=== PATIENT | female | born 1995 | race Caucasian/White ===

== ENCOUNTER 2025-05-22 07:27 | Inpatient (IN) ==
[2025-05-22] MEDS ORDERED: ACETAMINOPHEN 325 MG TAB PO PRN ×2 (07:59→20:41)
[2025-05-22] MEDS ORDERED: OXYTOCIN 30 UNITS/NSS 30 UNITS/500 ML BAG IV PRN ×2 (07:59→20:41)
[2025-05-22] MEDS ORDERED: LIDOCAINE 1% LOCAL 20 ML VIAL INFIL PRN (07:59)
[2025-05-22] MEDS ORDERED: CALCIUM CARBONATE 500 MG CHEWABLE TAB PO PRN (07:59)
[2025-05-22] MEDS: LACTATED RINGER'S 1,000 ML IV PRN (08:39)
[2025-05-22] MEDS: OXYTOCIN 30 UNITS/NSS 30 UNITS/500 ML BAG IV PRN (09:10)
[2025-05-22 09:14] LABS: Hematocrit (blood only) 35.6 % (37.0-47.0); Hemoglobin 12.3 g/dl (12.0-16.0); Mean Corpuscular Hemoglobin 29.4 pg (25.0-34.0); Mean Corpuscular Volume 85.2 fL (80.0-100.0); Platelet Count 240 K/uL (130-400); RDW Standard Deviation 39.2 fL (36.4-46.3); Red Blood Count 4.18 M/uL (4.20-5.40); White Blood Count 9.73 K/ul (4.8-10.8)
--- NOTE | 2025-05-22 09:25 | History & Physical Report ---
Date of Service May 22, 2025 Assessment & Plan (1) Encounter for induction of labor: Plan: This is a 30 y/o at 40w 0d presenting today for induction of labor. is complicated by GDM, not on insulin control. Marin bulb placed Pitocin ordered Epidural, as requested POC glucose monitoring - 68 on admission FHT monitoring - category I on admission. NPO, IV fluids ordered Continue I&O and vitals monitoring Admission and Anticipated Discharge Date Admission Date: May 22, 2025 History of Present Illness Chief Complaint: induction of labor Primary Care Provider: NO PCP Malaika Dawkins is a 30 y/o at 40w 0d with WILL 05/23/25 determined by LMP who is presenting today for induction of labor. is complicated by GDM, not insulin controlled. Rh(+), rubella immune, GBS (-) External FHT and external uterine monitors used; Category I tracing; normal FHT variability. OB Labs: Blood Type A Positive 10/25/24 Antibody Screen NEGATIVE 10/25/24 Hgb 12.0 g/dl (12.0-16.0) 03/03/25 Hct 35.9 % (37.0-47.0) L 03/03/25 MCV 87.6 fL (80.0-100.0) 10/25/24 Plt Count 236 K/uL (130-400) 10/25/24 Rubella IgG Antibody Immune (Immune) 10/25/24 Treponema pallidum Ab Negative (Negative) 03/03/25 Hep Bs Antigen Negative (Negative) 10/25/24 Hepatitis C Antibody Negative (Negative) 10/25/24 HIV 1&2 Ab/P24 Ag 4thGn Negative (Negative) 10/25/24 Glucose 1 Hr 50 gm 224 mg/dl (70-130) H 12/18/24 OB Optional Labs: Chlamydia trachomatis RNA Not Detected (NotDetected) 10/24/24 Neisseria gonorrhoeae RNA Not Detected (NotDetected) 10/24/24 cff-DNA : low-risk CF: declined SMA: declined Review of Systems Denies fever, chills, sweats Denies shortness of breath, difficulty breathing, chest pain, palpitations, chest pressure. Denies breast pain. Denies dysuria. Denies headache or changes in vision. Allergies Allergy/AdvReac Type Severity Reaction Status Date / Time No Known Allergies Allergy Verified 05/21/25 15:26 Home Medications Medication Instructions Recorded Confirmed Type 21-iron fu-folic acid PO 10/15/24 05/21/25 History [ Complete] acetone (urine) test (Ketone Urine #50 ea 12/26/24 05/21/25 Rx Test strips) blood sugar diagnostic (OneTouch #150 ea 12/26/24 05/21/25 Rx Verio test strips) lancets 33 gauge (OneTouch Delica #150 ea 12/26/24 05/21/25 Rx Plus Lancet) Patient History Medical History Human papilloma virus Anxiety Surgical History S/P tonsillectomy Family History Father Diabetes Grandmother (Paternal) Ovarian cancer Denies family history of Breast cancer Colorectal cancer Social History Smoking Status: Never smoker Second Hand Exposure: No; Do You Dip or Chew Tobacco: No; Tobacco Cessation Education Requested by Patient: No Hx Alcohol Use: No Hx Substance Use: No Preferred Language: Colombian Communication Ability: Effective 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 No acute distress. Cardiac: Regular rate and rhythm, no murmurs/rubs/gallops. Respiratory: Clear to auscultation bilaterally a/p, no wheezes/rales/rhonchi. No increased work of breathing. Symmetrical chest rise. No respiratory distress. Abdomen: Normal to inspection. Soft, nontender, gravid. Pelvic: Dilation 1 cm; Effacement 50 ; Station -[address] Cox Lower Extremities: No lower extremity edema or swelling. No deep calf pain. Abby's negative bilaterally Constitutional: WD/WN, vitals as above Results & Data Vital Signs (Past 12 Hours) Vital Signs Temp Pulse Resp BP 05/22/25 09:12 82 129/79 05/22/25 07:59 81 115/74 05/22/25 07:49 36.6 C 81 16 115/74 Supervising Physician Co-Signing Physician Notes Resident Physician Supervision Note: I interviewed and examined the patient. Discussed with Dr. Peterson and agree with findings and plan as documented in the note. Any exceptions or clarifications are listed here: 30 yo G1 at 39 6/7 wga presents for eiol. PNI: A1GDM. VSS, fetus cat 1. SVE /-2, post, med. EFW 6-7, vertex. 35cc marin bulb placed after consent obtained, pt tolerated well. Will start pit. GBS neg, epidural prn. Documented By: Aisstaou Cox MD
[2025-05-22] MEDS: fentANYL 2 MCG/ML BUPIVacaine 0.125%-NSS 100ML BAG ONE (13:27)
[2025-05-22] MEDS: BUPIVACAINE 0.25% PF 30 ML VIAL ONE (13:27)
[2025-05-22] MEDS: LIDOCAINE 2%/EPINEPHRINE 1:200,000 20 ML PF ONE (13:27)
[2025-05-22] MEDS: SODIUM CHLORIDE 0.9% PF INJ 10 ML VIAL ONE (13:29)
--- NOTE | 2025-05-22 13:38 | Anesthesiology Consultation ---
Date of Service May 22, 2025 Assessment & Plan Chart Review Chart Review: Acceptable Risk for Labor Epidural Consults Requested none History Height/Weight Height: 5 ft 2 in Weight: 51.71 kg Allergies Allergy/AdvReac Type Severity Reaction Status Date / Time No Known Allergies Allergy Verified 05/21/25 15:26 Medications Home Medications Medication Instructions Recorded Confirmed Last Taken 21-iron fu-folic acid PO 10/15/24 05/21/25 Unknown [ Complete] acetone (urine) test (Ketone Urine #50 ea 12/26/24 05/21/25 Unknown Test strips) blood sugar diagnostic (OneTouch #150 ea 12/26/24 05/21/25 Unknown Verio test strips) lancets 33 gauge (OneTouch Delica #150 ea 12/26/24 05/21/25 Unknown Plus Lancet) Active Medications Generic Name Dose Route Start Last Admin Trade Name Freq PRN Reason Stop Dose Admin Lactated Ringer's 1,000 mls @ 125 mls/hr 05/22/25 07:59 05/22/25 13:37 Lr IV 05/24/25 07:58 125 mls/hr .Q8H PRN Infusion L&D Protocol Protocol Oxytocin 30 units in 500 mls @ 10 mls/hr 05/22/25 08:49 05/22/25 12:00 Pitocin 30 Units/Nss IV 05/24/25 08:48 0.6 units/hr .Q24H PRN 10 mls/hr Labor Induction/Augmentation Titration Protocol 0.6 UNITS/HR Past Medical History Medical History Human papilloma virus Anxiety Past Family History Family History Father Diabetes Grandmother (Paternal) Ovarian cancer Denies family history of Breast cancer Colorectal cancer Past Surgical History Surgical History S/P tonsillectomy Social History Smoking Status: Never smoker Do You Dip or Chew Tobacco: No Hx Alcohol Use: No Hx Substance Use: No Physical Exam Vital Signs Last Vital Signs Temp 36.9 C 05/22/25 13:00 Pulse 77 05/22/25 13:36 Resp 16 05/22/25 13:26 BP 119/59 L 05/22/25 13:36 Pulse Ox 100 05/22/25 13:32 Testing Laboratory Results 05/22/25 08:58 05/22/25 05/22/25 12:33 09:15 POC Glucose 67 L* 68 L*
[2025-05-22] MEDS ORDERED: LIDOCAINE 2% MPF LOCAL 5 ML VIAL EPI PRN (13:39)
[2025-05-22] MEDS ORDERED: fentANYL 2 MCG/ML BUPIVacaine 0.125%-NSS 100ML BAG EPI PRN (13:39)
[2025-05-22] MEDS ORDERED: diphenhydrAMINE 50 MG/ML VIAL IV PRN (13:39)
[2025-05-22] MEDS ORDERED: SODIUM CHLORIDE 0.9% PF INJ 10 ML VIAL EPI PRN (13:39)
[2025-05-22] MEDS ORDERED: NALBUPHINE HCL INJ 10 MG/ML AMP IV PRN (13:39)
[2025-05-22] MEDS ORDERED: ROPIVACAINE 0.5% PF 5 MG/ML 20 ML VIAL EPI PRN (13:39)
[2025-05-22] MEDS ORDERED: BUPIVACAINE 0.25% PF 30 ML VIAL EPI PRN (13:39)
[2025-05-22] MEDS ORDERED: NALOXONE HCL 1 MG in SODIUM CHLORIDE 0.9% 1,000 ML IV PRN (13:39)
[2025-05-22] MEDS ORDERED: NALOXONE HCL 0.4 MG/1 ML VIAL/CARP IV PRN (13:39)
--- NOTE | 2025-05-22 15:56 | Labor Progress Brief Note ---
Date of Service May 22, 2025 Subjective had srom earlier, comfortable w/ epidural. Pit had to be dc'd due to late decels but has since recovered Assessment & Plan (1) Encounter for induction of labor: (2) Gestational diabetes mellitus (GDM) affecting , antepartum: Plan 30 yo G1 at 39 6/7 wga presents for IOL VSS Fetus was cat 2 during decels that started shortly after epidural but now cat 1 Labor - SVE unchanged from prior, given good recovery will restart pit. Discussed will need to see hwo baby tolerates things GDM - bg wnl GBS neg epidural in place Admission and Anticipated Discharge Date Admission Date: May 22, 2025 Physical Exam Genitourinary: Manual OB Exam: + cervical dilation 4 cm, + cervical effacement 70% and + station -2 OB Exam Monitor Tracing: + external FHT monitor used, + external uterine monitor used (q2-4) and + category I (120/mod/+accel/-decel) Results & Data Vital Signs (Past 12 Hours) Vital Signs Temp Pulse Resp BP Pulse Ox 05/22/25 15:51 77 122/72 05/22/25 15:48 82 100 05/22/25 15:43 74 100 05/22/25 15:38 87 100 05/22/25 15:36 92 H 108/68 05/22/25 15:33 76 100 05/22/25 15:30 16 05/22/25 15:30 16 05/22/25 15:28 88 100 05/22/25 15:23 84 100 05/22/25 15:22 77 121/76 05/22/25 15:18 81 100 05/22/25 15:13 80 100 05/22/25 15:08 85 100 05/22/25 15:06 88 114/71 05/22/25 15:03 85 100 05/22/25 15:00 16 05/22/25 15:00 98.2 F 16 05/22/25 14:58 83 100 05/22/25 14:53 79 100 05/22/25 14:51 76 109/65 05/22/25 14:48 78 100 05/22/25 14:43 82 100 05/22/25 14:38 84 100 05/22/25 14:37 99 H 93 05/22/25 14:32 91 H 100 05/22/25 14:30 16 05/22/25 14:30 16 05/22/25 14:27 74 100 05/22/25 14:22 75 100 05/22/25 14:21 79 125/71 05/22/25 14:17 75 100 05/22/25 14:12 73 100 05/22/25 14:07 75 124/70 100 05/22/25 14:02 76 100 05/22/25 14:00 16 05/22/25 14:00 16 05/22/25 13:57 84 100 05/22/25 13:52 84 100 05/22/25 13:49 77 120/60 05/22/25 13:47 81 100 05/22/25 13:45 96 H 125/59 L 05/22/25 13:42 92 H 100 05/22/25 13:40 77 119/57 L 05/22/25 13:39 84 114/55 L 05/22/25 13:37 82 100 05/22/25 13:36 77 119/59 L 05/22/25 13:33 83 112/60 05/22/25 13:32 82 100 05/22/25 13:31 82 05/22/25 13:29 83 112/64 05/22/25 13:27 100 05/22/25 13:27 78 05/22/25 13:27 78 122/65 05/22/25 13:26 16 05/22/25 13:26 16 05/22/25 13:25 89 118/60 05/22/25 13:23 85 119/70 05/22/25 13:22 87 100 05/22/25 13:21 93 H 119/63 05/22/25 13:17 95 H 100 05/22/25 13:12 91 H 128/82 100 05/22/25 13:07 84 100 05/22/25 13:02 80 100 05/22/25 13:00 98.4 F 05/22/25 12:57 87 100 05/22/25 12:52 77 100 05/22/25 12:13 71 124/85 05/22/25 11:42 90 111/65 05/22/25 11:12 71 129/87 05/22/25 11:05 97.9 F 05/22/25 10:42 76 132/85 05/22/25 10:13 64 135/86 05/22/25 09:42 74 125/85 05/22/25 09:12 82 129/79 05/22/25 07:59 81 115/74 05/22/25 07:49 97.9 F 81 16 115/74 Coding Level of Care Code None Diagnoses Encounter for induction of labor Z34.90 Gestational diabetes mellitus (GDM) affecting , antepartum O24.419
[2025-05-22] MEDS: BUPIVACAINE 0.25% PF 30 ML VIAL EPI STA (19:44)
[2025-05-22] MEDS: SODIUM CHLORIDE 0.9% PF INJ 10 ML VIAL EPI STA (19:45)
[2025-05-22] MEDS: LIDOCAINE 2%/EPINEPHRINE 1:200,000 20 ML PF EPI STA (19:45)
[2025-05-22] MEDS ORDERED: BENZOCAINE 20% SPRY 85 APPLN/85 GM CAN EXT PRN (20:41)
[2025-05-22] MEDS ORDERED: HYDROCORTISONE ACETATE 25 MG SUPP PR PRN (20:41)
[2025-05-22] MEDS ORDERED: DIPHTHER/TETAN/PERTUS Vaccine (Tdap, Adol/Adult) 0.5mL IM ONE (20:41)
--- NOTE | 2025-05-22 20:42 | Delivery Summary ---
Vaginal Delivery Summary Date of Service May 22, 2025 Vaginal Delivery Summary and 2nd Degree LAC PREOPERATIVE DIAGNOSIS: 1. Single intrauterine at 39 6/7 wga 2. A1GDM 3. Elective induction POSTOPERATIVE DIAGNOSIS: 1. Single intrauterine at 39 6/7 wga 2. A1GDM 3. Elective induction 4. Delivered PROCEDURE: 1. Normal spontaneous vaginal delivery. SURGEON: Aissatou Cox MD ANESTHESIA: Epidural. QUANTITATIVE BLOOD LOSS: 87 mL FLUIDS: Continuous LR. URINE OUTPUT: None. COMPLICATIONS: None. CONDITION: Stable. INDICATIONS: 30 yo G1 at 39 6/7 wga presented for induction of labor. Induction was begun with marin bulb and pitocin. She underwent srom and bulb removed. She received an epidural for pain control. Shortly after epidural, decels were noted so pitocin stopped x 1hr. After fetus recovered to category 1, pitocin was restarted and she progressed to complete and desired to push FINDINGS: A viable male infant, weight pending with Apgars of 8 and 9 at 1 and 5 minutes respectively. SPECIMEN: Cord blood OPERATIVE REPORT: The patient progressed to 10 cm, 100% effaced and +2 station, pushed over intact perineum with anesthesia to deliver a viable male infant, weight and Apgars as above. Head of delivered in SAVAGE position. Loose nuchal cord was delivered through before could be reduced. Body and shoulders were delivered without difficulty. was delivered to maternal abdomen and nursing staff. Delayed cord clamping was performed for 60 seconds. Cord was clamped and cut. Cord blood was obtained. Placenta delivered spontaneously intact with 3-vessel cord. IV oxytocin and fundal massage were given for excellent hemostasis. Vagina, cervix, perineum, and placenta were inspected. A second degree laceration was repaired using 3-0 vicryl, there was excellent hemostasis. Sponge and needle counts correct x2. No sponges were left behind. Mother and stable in immediate period. [facility] Vaginal Delivery Charge Vaginal Delivery Codes: 84342 global code for the antepartum, delivery, and post- Delivery Type Details: and 2nd Degree LAC
[2025-05-22 22:58] VITALS: RESP 16
[2025-05-22] MEDS: IBUPROFEN 600 MG TAB PO PRN (23:17)
[2025-05-22] MEDS: DOCUSATE SODIUM 100 MG CAP PO SCH (23:45)
--- NOTE | 2025-05-23 00:11 | Anesthesia Procedure Note ---
Date of Service May 23, 2025 Anesthesia Post Epidural Note Vital Signs Vital Signs: Temp Pulse Resp BP Pulse Ox O2 Del Method 37.2 C 85 16 118/77 99 Room Air 05/22/25 22:56 05/22/25 22:56 05/22/25 22:56 05/22/25 22:56 05/22/25 22:56 05/22/25 22:56 Pain Intensity Back: Pain Intensity: 2 Notes Mental Status: alert / awake / arousable Nausea / Vomiting: adequately controlled Pain: adequately controlled Airway Patency, RR, SpO2: stable & adequate BP & HR: stable & adequate Hydration State: stable & adequate Neuraxial Anesthesia: was administered and sensory block is resolving Anesthetic Complications: no major complications apparent and Pt Satisfied with anesthetic care Epidural: Removed without complications and With tip intact
--- NOTE | 2025-05-23 05:17 | Obstetrical Progress Note ---
Date of Service May 23, 2025 Assessment & Plan (1) examination following vaginal delivery: (2) Gestational diabetes mellitus (GDM) affecting , antepartum: Plan 30 y/o day 1 s/p . complicated by GDM without need for insulin control. Feels well today. Vital signs stable Continue post- care Encourage ambulation and Pain controlled with ibuprofen Hgb stable Anticipate discharge home tomorrow, follow up with Dr. Cox in 6 weeks. Admission and Anticipated Discharge Date Admission Date: May 22, 2025 Anticipated date of discharge: 05/24/25 Supervising Physician Co-Signing Physician Notes Resident Physician Supervision Note: I interviewed and examined the patient. Discussed with Dr. Peterson and agree with findings and plan as documented in the note. Any exceptions or clarifications are listed here: PP1 s/p , doing well. VSS, exam benign. Continue routine care Documented By: Aissatou Cox MD Supa Dawkins is a 30 y/o day 1 s/p . was complicated by GDM without need for insulin control. Ambulation: ambulating normally Voiding: no voiding problems Passing Gas:: Yes Diet Tolerance:: regular diet Lochia:: Small Feeding Type:: breast feeding Current Pain Level: 3/10 Resting comfortably this AM in NAD. Denies COBB, CP, SOB, N/V/D, LE pain/swelling. Review of Systems Review of Systems: All systems reviewed & are unremarkable except as noted in HPI & below Physical Exam Physical Exam: General: patient resting comfortably, NAD, non-toxic in appearance, AA&O x 4, answers questions appropriately. Skin: warm, dry, intact HEENT: NC/AT, anicteric sclera, conjunctiva without injection, moist mucus membranes. Heart: +S1/S2, regular, no m/r/g Lungs: equal air entry bilaterally, no rales/rhonchi/wheezes Abd: +BS, soft, NT/ND, uterine fundus firm, nontender below umbilicus Ext: warm, no clubbing/cyanosis or edema, Abby's neg. Neuro: nonfocal, patient AA&O x 4, speech intact, no facial droop, moving all extremities on command. Constitutional: WD/WN, vitals as above Results & Data Vital Signs (Past 12 Hours) Vital Signs Temp Pulse Pulse Resp BP BP Pulse Ox 05/23/25 03:14 37.2 C 89 16 123/71 97 05/22/25 22:56 37.2 C 85 16 118/77 99 05/22/25 22:29 93 H 125/73 05/22/25 22:21 103 H 123/70 05/22/25 22:06 88 123/70 05/22/25 21:51 94 H 128/74 05/22/25 21:36 95 H 129/72 05/22/25 21:21 96 H 123/68 05/22/25 21:06 100 H 125/69 05/22/25 20:51 101 H 120/58 L 05/22/25 20:36 108 H 133/80 05/22/25 20:23 120 H 98 05/22/25 20:21 123 H 120/60 05/22/25 20:18 134 H 98 05/22/25 20:13 100 H 99 05/22/25 20:08 93 H 99 05/22/25 20:06 104 H 125/74 05/22/25 20:03 109 H 100 05/22/25 19:58 117 H 100 05/22/25 19:53 134 H 100 05/22/25 19:48 127 H 95 05/22/25 19:43 107 H 100 05/22/25 19:38 110 H 100 05/22/25 19:33 113 H 99 05/22/25 19:28 125 H 80 L 05/22/25 19:23 95 H 100 05/22/25 19:21 101 H 106/59 L 05/22/25 19:18 118 H 100 05/22/25 19:13 95 H 100 05/22/25 19:08 107 H 100 05/22/25 19:03 37.0 C 91 H 18 100 05/22/25 19:00 16 05/22/25 19:00 16 05/22/25 18:58 85 100 05/22/25 18:53 82 100 05/22/25 18:51 77 130/76 05/22/25 18:48 79 100 05/22/25 18:43 84 100 05/22/25 18:38 84 100 05/22/25 18:36 83 125/63 05/22/25 18:33 83 100 07/25/25 18:30 16 05/22/25 18:30 16 05/22/25 18:28 83 100 05/22/25 18:23 86 100 05/22/25 18:21 184 H 156/81 H 05/22/25 18:18 79 100 05/22/25 18:13 84 100 05/22/25 18:08 78 100 05/22/25 18:07 78 123/76 05/22/25 18:03 81 100 05/22/25 18:00 16 05/22/25 18:00 16 05/22/25 17:58 85 100 05/22/25 17:53 89 100 05/22/25 17:51 82 129/81 05/22/25 17:48 84 100 05/22/25 17:43 91 H 100 05/22/25 17:38 81 100 05/22/25 17:37 78 124/76 05/22/25 17:33 80 100 05/22/25 17:30 16 05/22/25 17:30 16 05/22/25 17:28 78 100 05/22/25 17:23 77 100 05/22/25 17:21 80 135/83 05/22/25 17:18 80 100 05/22/25 17:13 83 100 O2 Del Method 05/23/25 03:14 Room Air 05/22/25 22:56 Room Air 05/22/25 22:29 05/22/25 22:21 05/22/25 22:06 05/22/25 21:51 05/22/25 21:36 05/22/25 21:21 05/22/25 21:06 05/22/25 20:51 05/22/25 20:36 05/22/25 20:23 05/22/25 20:21 05/22/25 20:18 05/22/25 20:13 05/22/25 20:08 05/22/25 20:06 05/22/25 20:03 05/22/25 19:58 05/22/25 19:53 05/22/25 19:48 05/22/25 19:43 05/22/25 19:38 05/22/25 19:33 05/22/25 19:28 05/22/25 19:23 05/22/25 19:21 05/22/25 19:18 05/22/25 19:13 05/22/25 19:08 05/22/25 19:03 05/22/25 19:00 05/22/25 19:00 05/22/25 18:58 05/22/25 18:53 05/22/25 18:51 05/22/25 18:48 05/22/25 18:43 05/22/25 18:38 05/22/25 18:36 05/22/25 18:33 05/22/25 18:30 05/22/25 18:30 05/22/25 18:28 05/22/25 18:23 05/22/25 18:21 05/22/25 18:18 05/22/25 18:13 05/22/25 18:08 05/22/25 18:07 05/22/25 18:03 05/22/25 18:00 05/22/25 18:00 05/22/25 17:58 05/22/25 17:53 05/22/25 17:51 05/22/25 17:48 05/22/25 17:43 05/22/25 17:38 05/22/25 17:37 05/22/25 17:33 05/22/25 17:30 05/22/25 17:30 05/22/25 17:28 05/22/25 17:23 05/22/25 17:21 05/22/25 17:18 05/22/25 17:13
[2025-05-23] MEDS: FERROUS SULFATE 325 MG TAB PO SCH (07:54)
[2025-05-23] MEDS: PRENATAL VITAMIN 1 TAB PO SCH (07:54)
--- NOTE | 2025-05-24 08:11 | Obstetrical Progress Note ---
Date of Service May 24, 2025 Assessment & Plan (1) examination following vaginal delivery: Discharge to home today Subjective Ambulation: ambulating normally Voiding: no voiding problems Passing Gas:: Yes Diet Tolerance:: regular diet Lochia:: Small Feeding Type:: breast feeding Physical Exam Constitutional WD/WN, vitals as above Eyes PERRL, conjunctivae normal, anicteric sclerae Neck normal visual inspection Respiratory normal respiratory effort and able to speak in complete sentences; no respiratory distress and no labored breathing Cardiovascular Rate/Rhythm: regular rate and regular rhythm Extremities: no edema Chest (Breasts) Chest: normal inspection of chest Gastrointestinal (Abdomen) Inspection/Auscultation: abdomen normal to inspection postgravid Psychiatric A+Ox3, euthymic affect Genitourinary OB Exam Abdomen: + fundal height Fundus: + firm and + relation to umbilicus (fundus just below umbilicus); not tender Results & Data Vital Signs (Past 12 Hours) Vital Signs Temp Pulse Resp BP Pulse Ox O2 Del Method 05/23/25 22:54 98.4 F 78 16 113/71 98 Room Air 05/23/25 20:35 98.2 F 78 16 118/82 100 Room Air
[2025-05-24 08:43] VITALS: BP 122/81; PULSE 79; TEMP 98.1; O2SAT 100
== END 2025-05-24 11:00 | disposition home or self-care (01) | DRG 807 ==
LOC: 4S1 07:27 → 4E2 23:13